=== PATIENT | male | born 1960 | race Caucasian/White ===

== ENCOUNTER 2017-05-02 14:04 | Outpatient (CLI) | payer OTHER ==
--- NOTE | 2017-05-02 15:04 | Diagnostic Imaging Report ---
IZAIAH KEITH~ [facility] [place] [facility] [address] [facility] [address] [place], [place]. [address] ~ ~ ~ ~ Report Submission Date: May 02, 2017 2:34:49 PM CARGO WORKER Patient ~ Study Name: AN MELISSA ~ Date: May 02, 2017 2:17:52 PM CARGO WORKER ~ Modality Type: CR Gender: M ~ Description: CHEST : 58 ~ Institution: [facility] Physician: IZAIAH KEITH ~ ~ ~ Examination: PA and lateral chest. History: Evaluate lung ruiz. Comparison exam: None provided. Findings: PA lateral chest demonstrate a normal cardiac and mediastinal silhouette. No focal infiltrate.~ No blunting of the costophrenic margins.~ Lumbar fixation hardware. Impression: No acute pulmonary process. ~ Electronically signed on May 02, 2017 2:34:49 PM CARGO WORKER by: German WEBBER
== END 2017-05-02 14:05 ==
LOC: RAD 14:04
PROVIDERS: ATTEND Family Medicine
DX: J93.9 Pneumothorax, unspecified (principal)
CPT/HCPCS: 71020